=== PATIENT | male | born 1945 | race Caucasian/White ===

== ENCOUNTER 2021-06-17 16:37 | Emergency (ER) | payer OTHER ==
[2021-06-17] MEDS ORDERED: LORazepam 0.5 MG Tab PO ONE (17:25)
[2021-06-17] MEDS ORDERED: Losartan 25 MG Tab PO SCH (17:30)
--- NOTE | 2021-06-17 17:33 | EDM.PDOC ---
<OfficerGerard - Last Filed: 06/17/21 17:26> ED HPI GENERAL MEDICAL PROBLEM - General Chief Complaint: General Stated Complaint: HIGH BP Time Seen by Provider: 06/17/21 17:21 Source of Information: Reports: Patient, RN Notes Reviewed, Other ([facility]) History Limitations: Reports: No Limitations - History of Present Illness INITIAL COMMENTS - FREE TEXT/NARRATIVE: 75-year-old gentleman presents emergency department day complaint of elevated blood pressure, he has had problems with blood pressure in the past he is always been kind of borderline blood today he is currently under a lot of stress his anxiety is up has caused blood pressure to go up he did use some hydroxyzine with minimal effect called the [facility] coordinator recommended he come to the emergency department for further evaluation. He did have a systolic blood pressure at 225 at home, no chest pain no nausea vomiting no shortness of breath - Related Data Allergies Allergy/AdvReac Type Severity Reaction Status Date / Time lisinopril AdvReac Cough Verified 04/23/15 17:11 Home Meds: Home Meds Cholecalciferol (Vitamin D3) [Vitamin D3] 1,000 units PO DAILY 08/31/14 [History] Omeprazole 20 mg PO BEDTIME 08/31/14 [History] Simvastatin [Zocor] 40 mg PO BEDTIME 08/31/14 [History] Warfarin [Coumadin] 5 mg PO BEDTIME 04/23/15 [History] Acetaminophen [Tylenol Extra Strength] 500 mg PO ASDIRECTED PRN 06/17/21 [History] Losartan [Cozaar] 50 mg PO DAILY #30 tab 06/17/21 [Rx] Melatonin 5 mg PO BEDTIME 06/17/21 [History] Vitamin B Complex 1 each PO DAILY 06/17/21 [History] cloNIDine [Catapres] 0.05 - 0.1 mg PO Q12HR PRN #15 tab 06/17/21 [Rx] Past Medical History Respiratory History: Reports: PE Gastrointestinal History: Reports: GERD Other Genitourinary History: kidney disease, unknown stage but stable Psychiatric History: Reports: Anxiety, PTSD Other Dermatologic History: toenail fungus - Infectious Disease History Infectious Disease History: Reports: Chicken Pox, Measles, Mumps - Past Surgical History Head Surgeries/Procedures: Reports: None GI Surgical History: Reports: Cholecystectomy Dermatological Surgical History: Reports: None Social & Family History - Tobacco Use Tobacco Use Status *Q: Never Tobacco User - Caffeine Use Caffeine Use: Reports: Coffee - Alcohol Use Days Per Week of Alcohol Use: 7 Number of Drinks Per Day: 2 Total Drinks Per Week: 14 - Recreational Drug Use Recreational Drug Use: No ED ROS GENERAL - Review of Systems Review Of Systems: See Below Constitutional: Reports: No Symptoms, Weight Gain Respiratory: Reports: No Symptoms Cardiovascular: Reports: No Symptoms GI/Abdominal: Reports: No Symptoms : Reports: No Symptoms ED EXAM, GENERAL - Physical Exam Exam: See Below Exam Limited By: No Limitations General Appearance: Alert, WD/WN, No Apparent Distress Respiratory/Chest: No Respiratory Distress, Lungs Clear, Normal Breath Sounds, No Accessory Muscle Use, Chest Non-Tender Cardiovascular: Regular Rate, Rhythm, No Murmur Departure - Departure Disposition: Home, Self-Care 01 Clinical Impression: HTN (hypertension) Qualifiers: Hypertension type: unspecified Qualified Code(s): I10 - Essential (primary) hypertension - Discharge Information Instructions: Hypertension, Adult, [id number] Referrals: Roberta Velarde MD [Primary Care Provider] - Forms: ED Department Discharge Additional Instructions: Take Losartan every 24 hrs. Take Clonidine 0.1 mg 1/2 to 1 tablet every 12 hrs as needed for BP over 185 systolic. F/U with your provider in the next week to adjust your BP meds. Sepsis Event Note (ED) - Evaluation Sepsis Screening Result: No Definite Risk <Shan Mackenzie - Last Filed: 06/17/21 19:52> Course - Vital Signs Last Recorded V/S: Last Vital Signs Temp Pulse 64 06/17/21 18:20 Resp 16 06/17/21 16:51 BP 197/101 H 06/17/21 19:26 Pulse Ox 96 06/17/21 16:51 - Orders/Labs/Meds Orders: Active Orders 24 hr Category Date Time Status UA W/MICROSCOPIC [URIN] Urgent Lab 06/17/21 19:26 Received Losartan [Cozaar] Med 06/17/21 17:30 Active 25 mg PO DAILY Medication Orders Losartan Potassium (Losartan 25 Mg Tab) 25 mg PO DAILY JERILYN Last Admin: 06/17/21 17:37 Dose: 25 mg Documented by: [email or web address] Labs: Laboratory Tests 06/17/21 06/17/21 06/17/21 Range/Units 17:33 17:33 18:59 WBC 5.0 (4.5-11.0) K/uL RBC 4.41 (4.30-5.90) M/uL Hgb 13.8 (12.0-15.0) g/dL Hct 40.0 (40.0-54.0) % MCV 91 (80-98) fL MCH 31 (27-31) pg MCHC 35 (32-36) % Plt Count 163 (150-400) K/uL Neut % (Auto) 51.2 (36-66) % Lymph % (Auto) 33.8 (24-44) % [place] % (Auto) 11.4 H (2-6) % Eos % (Auto) 2.8 (2-4) % Baso % (Auto) 0.8 (0-1) % PT 34.0 H (9.2-10.6) sec INR 3.5 Sodium 140 (140-148) mmol/L Potassium 3.7 (3.6-5.2) mmol/L Chloride 104 (100-108) mmol/L Carbon Dioxide 30 (21-32) mmol/L Anion Gap 6.0 (5.0-14.0) mmol/L BUN 14 (7-18) mg/dL Creatinine 1.3 (0.8-1.3) mg/dL Est Cr Clr Drug Dosing 50.68 mL/min Estimated GFR (MDRD) 54 L (>60) Glucose 93 (74-106) mg/dL Calcium 9.1 (8.5-10.1) mg/dL Meds: Medications Generic Name Dose Route Start Last Admin Trade Name Freq PRN Reason Stop Dose Admin Losartan Potassium 25 mg 06/17/21 17:30 06/17/21 17:37 Losartan 25 Mg Tab PO 25 mg DAILY JERILYN Administration Discontinued Medications Generic Name Dose Route Start Last Admin Trade Name Freq PRN Reason Stop Dose Admin Clonidine HCl 0.1 mg 06/17/21 18:56 06/17/21 19:26 Clonidine 0.1 Mg Tab PO 06/17/21 18:57 0.1 mg ONETIME ONE Administration Lorazepam 0.5 mg 06/17/21 17:25 06/17/21 17:39 Lorazepam 0.5 Mg Tab PO 06/17/21 17:26 0.5 mg ONETIME ONE Administration - Re-Assessments/Exams Free Text/Narrative Re-Assessment/Exam: 06/17/21 19:44 BP better, will d/c on prn clonidine. Continue Cozaar. Departure - Departure Time of Disposition: 20:00 Condition: Fair - Discharge Information *PRESCRIPTION DRUG MONITORING PROGRAM REVIEWED*: Not Applicable *COPY OF PRESCRIPTION DRUG MONITORING REPORT IN PATIENT [place]: Not Applicable Sepsis Event Note (ED) - Focused Exam Vital Signs: Vital Signs Pulse Resp BP BP Pulse Ox 06/17/21 19:26 197/101 H 06/17/21 18:20 64 230/110 H 06/17/21 17:37 179/106 H 06/17/21 16:51 74 16 202/114 H 96
[2021-06-17 18:21] VITALS: PULSE 64
[2021-06-17] MEDS ORDERED: cloNIDine 0.1 MG Tab PO ONE ×2 (18:56→19:49)
[2021-06-17 20:07] VITALS: BP 157/103
== END 2021-06-17 20:12 | disposition home or self-care (01) ==
LOC: JP.ED 16:37
DX: I10 Essential (primary) hypertension (principal); K21.9 Gastro-esophageal reflux disease without esophagitis; Z79.899 Other long term (current) drug therapy; Z79.01 Long term (current) use of anticoagulants
CPT/HCPCS: 36415; 80048; 81001; 85025; 85610; 99283; A9270

== ENCOUNTER 2022-02-01 13:06 | Emergency (ER) | payer OTHER ==
[2022-02-01 13:31] VITALS: BP 171/92; PULSE 65
[2022-02-01 15:41] LABS: ESTIMATED GFR 41 mL/min (>60)
== END 2022-02-01 16:39 | disposition home or self-care (01) ==
LOC: JP.ED 13:06
DX: U07.1 COVID-19 (principal); E86.0 Dehydration; Z88.8 Allergy status to other drugs, medicaments and biological substances; Z79.899 Other long term (current) drug therapy; Z79.01 Long term (current) use of anticoagulants; Z90.49 Acquired absence of other specified parts of digestive tract; Z87.891 Personal history of nicotine dependence
CPT/HCPCS: 36415; 80053; 85025; 85379; 86140; 99284

== ENCOUNTER 2023-06-13 13:30 | Emergency (ER) | payer OTHER ==
[2023-06-13] MEDS ORDERED: Sodium Chloride 0.9% 10 ML Syringe FLUSH PRN (14:04)
[2023-06-13] MEDS ORDERED: Aspirin 81 MG Tab.Chew PO ONE (14:05)
[2023-06-13 14:19] LABS: BASOPHILS ABSOLUTE AUTO 0.03 K/uL (0.00-0.10); BASOPHILS PERCENT AUTO 0.5 % (0.1-1.3); EOSINOPHILS PERCENT AUTO 1.8 % (0.0-5.4); HEMATOCRIT 37.9 % (38.4-49.7); HEMOGLOBIN 13.2 g/dL (12.9-16.9); IMMATURE GRAN PERCENT AUTO 0.4 % (0.0-0.7); LYMPHOCYTES ABSOLUTE AUTO 1.75 K/uL (0.8-3.3); LYMPHOCYTES PERCENT AUTO 31.3 % (11.4-47.7); MEAN CORPUSCULAR HEMOGLOBIN 31.4 pg (31.6-35.5); MEAN CORPUSCULAR HGB CONC 34.8 g/dL (31.6-35.5); MONOCYTES ABSOLUTE AUTO 0.63 K/uL (0.20-0.90); MONOCYTES PERCENT AUTO 11.3 % (3.3-12.6); NEUTROPHILS ABSOLUTE AUTO 3.07 K/uL (1.0-7.6); NEUTROPHILS PERCENT AUTO 54.7 % (40.0-78.1); PLATELET COUNT,PLT 171 K/uL (130-375); RED BLOOD CELL COUNT 4.21 M/uL (4.14-5.76); WHITE BLOOD CELL COUNT,WBC 5.6 K/uL (3.2-11.0)
[2023-06-13 14:20] LABS: IMMATURE GRAN ABSOLUTE AUTO 0.02 K/uL (0.00-0.23)
[2023-06-13 14:35] LABS: INR 2.2; PROTHROMBIN TIME 21.2 sec (9.2-10.6)
[2023-06-13 14:41] LABS: CALCIUM 9.1 mg/dL (8.5-10.1); CREATININE 1.6 mg/dL (0.8-1.3); EST CRCL DRUG DOSING (CG) 36.22 mL/min; POTASSIUM,K 3.5 mmol/L (3.6-5.2); TROPONIN I HIGH SENSITIVITY 18.1 pg/mL (<=60.3)
[2023-06-13 14:42] LABS: ANION GAP 13.5 mmol/L (5.0-14.0)
[2023-06-13] MEDS ORDERED: Sodium Chloride 0.9% 1,000 ML IV ONE (14:48)
[2023-06-13] MEDS ORDERED: Metoprolol Tartrate 5 MG/5 ML SDV IVPUSH ONE ×2 (17:30→18:08)
[2023-06-13] MEDS ORDERED: hydrALAZINE 20 MG/ML SDV IVPUSH ONE (18:27)
[2023-06-13 20:56] VITALS: BP 183/94; PULSE 61
== END 2023-06-13 21:10 ==
LOC: JP.ED 13:30
DX: I21.4 Non-ST elevation (NSTEMI) myocardial infarction (principal); K21.9 Gastro-esophageal reflux disease without esophagitis; Z79.01 Long term (current) use of anticoagulants; Z79.899 Other long term (current) drug therapy; Z88.8 Allergy status to other drugs, medicaments and biological substances
CPT/HCPCS: 36415; 71046; 80048; 84484; 85025; 85379; 85610; 93005; 96361; 96374; 96375; 99285; A9270; J0360; J3490; J7030